=== PATIENT | male | born 1980 | race Caucasian/White ===

== ENCOUNTER 2018-10-06 10:58 | Emergency (ER) | payer SELFPAY ==
[~2018-10-06] VITALS: Ht 165.1 cm; Wt 77.0 kg
[2018-10-06 11:04] VITALS: BP 143/84; PULSE 90; RESP 16; Ht 165.1 cm; Wt 77.0 kg
[2018-10-06] MEDS ORDERED: SOD CHLORIDE 0.9% 1,000 ML IV STA (11:15)
[2018-10-06] MEDS ORDERED: morphine 2 MG INJ IV STA (11:15)
[2018-10-06] MEDS ORDERED: KETOROLAC 30 MG INJ IV STA (11:15)
[2018-10-06] MEDS ORDERED: ONDANSETRON 4 MG INJ IV STA ×2 (11:15→12:48)
[2018-10-06] MEDS ORDERED: HYDROmorphONE 0.5 MG/0.5 ML SYG IV STA (12:48)
[2018-10-06] MEDS ORDERED: CEFTRIAXONE 1 GM/50 ML (PMX) 50 ML IVPB ONE (13:00)
--- NOTE | 2018-10-06 13:07 | ERD ---
ER Documentation Chief Complaint Chief Complaint pt is bib self with c/o right sided flank pain on and off x 2 wk with nause HPI 37-year-old male is here complaining of right-sided flank pain on and off for 2 weeks with nausea. He states over the past 2 weeks she is thrown up one time and has had one episode of hematuria. He does have dysuria. No fever. No diarrhea. He is status post cholecystectomy. Denies testicular pain. ROS All systems reviewed and are negative except as per history of present illness. Allergies Allergies: Coded Allergies: No Known Allergy (Unverified , 10/06/18) PMhx/Soc History of Surgery: Yes (LAP CASS) FmHx Family History: No diabetes Physical Exam Vitals Vital Signs Date Temp Pulse Resp B/P (MAP) Pulse Ox O2 O2 Flow FiO2 Time Delivery Rate 10/06/18 98.3 90 16 143/84 97 11:04 (103) Physical Exam INITIAL VITAL SIGNS: Reviewed by me GENERAL: Awake, alert and oriented x 4, well appearing, nontoxic, speaking in full sentences. No acute distress RESPIRATORY: Clear to auscultation bilaterally. Symmetric chest wall rise. No wheezing or rales. No accessory muscle use. CV: Regular rate and rhythm. No murmurs, rubs, or gallops. ABDOMEN: Soft, non-distended. Nontender. Negative [place]. Negative McBurneys point tenderness. Mild right-sided CVA tenderness . No guarding. No rebound. Result Diagram: 10/06/18 1129 10/06/18 1129 Results 24 hrs Laboratory Tests Test 10/06/18 11:29 White Blood Count 9.3 10^3/ul Red Blood Count 5.71 10^6/ul Hemoglobin 16.4 g/dl Hematocrit 49.1 % Mean Corpuscular Volume 86.0 fl Mean Corpuscular Hemoglobin 28.7 pg Mean Corpuscular Hemoglobin Concent 33.4 g/dl Red Cell Distribution Width 12.7 % Platelet Count 264 10^3/UL Mean Platelet Volume 9.4 fl Immature Granulocytes % 0.300 % Neutrophils % 61.7 % Lymphocytes % 22.8 % Monocytes % 8.1 % Eosinophils % 6.5 % Basophils % 0.6 % Nucleated Red Blood Cells % 0.0 /100WBC Immature Granulocytes # 0.030 10^3/ul Neutrophils # 5.7 10^3/ul Lymphocytes # 2.1 10^3/ul Monocytes # 0.8 10^3/ul Eosinophils # 0.6 10^3/ul Basophils # 0.1 10^3/ul Nucleated Red Blood Cells # 0.0 10^3/ul Urine Color YELLOW Urine Clarity SLIGHTLY CLOUDY Urine pH 5.0 Urine Specific [place] 1.026 Urine Ketones NEGATIVE mg/dL Urine Nitrite NEGATIVE mg/dL Urine Bilirubin NEGATIVE mg/dL Urine Urobilinogen NEGATIVE mg/dL Urine Leukocyte Esterase 1+ [place]/ul Urine Microscopic RBC > 182 /HPF Urine Microscopic WBC 6 /HPF Urine Squamous Epithelial Cells FEW /HPF Urine Bacteria FEW /HPF Urine Mucus FEW /HPF Urine Hemoglobin 3+ mg/dL Urine Glucose NEGATIVE mg/dL Urine Total Protein NEGATIVE mg/dl Sodium Level 145 mmol/L Potassium Level 4.2 mmol/L Chloride Level 108 mmol/L Carbon Dioxide Level 25 mmol/L Anion Gap 12 Blood Urea Nitrogen 17 mg/dl Creatinine 1.10 mg/dl Est Glomerular Filtrat Rate mL/min > 60 mL/min Glucose Level 121 mg/dl Calcium Level 9.6 mg/dl Total Bilirubin 0.7 mg/dl Direct Bilirubin 0.00 mg/dl Indirect Bilirubin 0.7 mg/dl Aspartate Amino Transf (AST/SGOT) 43 IU/L Alanine Aminotransferase (ALT/SGPT) 48 IU/L Alkaline Phosphatase 54 IU/L Total Protein 8.4 g/dl Albumin 4.6 g/dl Globulin 3.80 g/dl Albumin/Globulin Ratio 1.21 Lipase 48 U/L Current Medications Medications Dose Sig/Nelida Start Time Status Last (Trade) Ordered Route PRN Stop Time Admin Dose Reason Admin Sodium 1,000 ml @ Q1H STAT 10/06/18 DC 10/06/18 Chloride 1,000 mls/hr IV 11:15 11:27 10/06/18 12:14 Morphine 2 mg ONCE STAT 10/06/18 DC 10/06/18 Sulfate IV 11:15 11:27 (morphine) 10/06/18 11:17 Ondansetron 4 mg ONCE STAT 10/06/18 DC 10/06/18 HCl (Zofran IV 11:15 11:27 Inj) 10/06/18 11:17 Ketorolac 30 mg ONCE STAT 10/06/18 DC 10/06/18 Tromethamine IV 11:15 11:27 (Toradol) 10/06/18 11:17 1 mg ONCE STAT 10/06/18 DC Hydromorphone IV 12:48 HCl 10/06/18 12:49 (Dilaudid) Ondansetron 4 mg ONCE STAT 10/06/18 DC HCl (Zofran IV 12:48 Inj) 10/06/18 12:49 Ceftriaxone 50 ml @ ONCE ONCE 10/06/18 Sodium 100 mls/hr IVPB 13:00 10/06/18 13:29 Procedures/MDM The differential diagnosis includes but is not limited to appendicitis, cholelithiasis, cholecystitis, pancreatitis, hepatitis, gastritis, peptic ulcer disease, bowel obstruction, diverticulitis, renal disease including stones, torsion, AAA, pyelonephritis, and others. Patient's labs are unremarkable. Urine does show evidence of UTI and hematuria. CT shows nonobstructing kidney stones. He was given a dose of Rocephin IV here as well as pain medication and discharged with Cipro Zofran and [place]. No evidence of septic stone. Patient counseled regarding my diagnostic impression and care plan. Prior to discharge all questions answered. Pt agrees with treatment plan and understands strict return precautions. Pt is instructed to follow up with primary care provider within 24-48 hours. Precautionary instructions provided including instructions to return to the ER if not improving or for any worsening or changing symptoms or concerns. Departure Diagnosis: Primary Impression: Cystitis Additional Impression: Renal colic Condition: Stable ABDIFATAH SCHERER PA-C Oct 06, 2018 13:07
[2018-10-06] MEDS ORDERED: HYDR-4011 PO (13:08)
[2018-10-06] MEDS ORDERED: ONDA4TAB14 PO (13:08)
[2018-10-06] MEDS ORDERED: CIPR500T4 PO (13:08)
== END 2018-10-06 14:16 | disposition home or self-care (01) ==
LOC: FTE 10:58
DX: N30.91 Cystitis, unspecified with hematuria (principal); N23 Unspecified renal colic
CPT/HCPCS: 36415; 74176; 80053; 81001; 83690; 85025; 96361; 96365; 96375; 96376; 99285; J0696; J1170; J1885; J2270; J2405; J7030

== ENCOUNTER 2018-10-09 10:17 | Emergency (ER) | payer SELFPAY ==
[~2018-10-09] VITALS: Ht 165.1 cm; Wt 84.6 kg
[~2018-10-09 10:17] MED LIST: CIPR500T4 PO; HYDR-4011 PO; ONDA4TAB14 PO
[2018-10-09 10:25] VITALS: Ht 165.1 cm; Wt 84.6 kg
[2018-10-09] MEDS ORDERED: HYDROmorphONE 1 MG/ML SYG IV STA ×3 (12:15→14:41)
[2018-10-09] MEDS ORDERED: KETOROLAC 30 MG INJ IV STA (12:15)
[2018-10-09] MEDS ORDERED: SOD CHLORIDE 0.9% 1,000 ML IV STA ×2 (12:15→14:41)
[2018-10-09] MEDS ORDERED: ONDANSETRON 4 MG INJ IV STA ×3 (12:15→14:41)
--- NOTE | 2018-10-09 14:47 | ERD ---
ER Documentation Chief Complaint Chief Complaint RIGHT FLANK PAIN, SEEN TUESDAY, DX KIDNEY STONE HPI This is a 37-year-old male who was recently diagnosed with a kidney stone. The patient indicates that 2 weeks ago he started to develop right flank pain. He was seen and evaluated at [facility] 2 days ago with nep hrolithiasis via CT scan. The patient indicates he was sent home with [place] but roughly 1 hour prior to arrival he started to develop severe pain radiating to the right flank region to the right lower quadrant. He had no fevers no shaking no chills and also is taking antibiotics that were prophylactically prescribed to the patient. He had mild hematuria. He states the pain is a sharp shooting pain 10 out of 10 intensity with no alleviating or exacerbating factors. ROS All systems reviewed and are negative except as per history of present illness. Medications Home Meds Active Scripts Tamsulosin Hcl* (Flomax*) 0.4 Mg Cap.er.24h, 0.4 MG PO BID, #10 CAP Prov:AC BURK MD 10/09/18 Ibuprofen* (Motrin*) 800 Mg Tab, 800 MG PO Q6H PRN for PAIN AND OR ELEVATED TEMP, #30 TAB Prov:AC BURK MD 10/09/18 Hydrocodone/Acetaminophen ([place] 5-325 Tablet) 1 Each Tablet, 1 TAB PO Q6H PRN for PAIN, #15 TAB Prov:ABDIFATAH SCHERER PA-C 10/06/18 Discontinued Scripts Ondansetron (Ondansetron Odt) 4 Mg Tab.rapdis, 4 MG PO Q6H PRN for NAUSEA AND/OR VOMITING, #20 TAB Prov:ABDIFATAH SCHERER PA-C 10/06/18 Ciprofloxacin Hcl* (Ciprofloxacin Hcl*) 500 Mg Tablet, 500 MG PO BID for 7 Days, TAB Prov:ABDIFATAH SCHERER PA-C 10/06/18 Allergies Allergies: Coded Allergies: No Known Allergy (Unverified , 10/09/18) PMhx/Soc History of Surgery: Yes (LAP CASS, LEFT HAND SX) Anesthesia Reaction: No Hx Neurological Disorder: No Hx Respiratory Disorders: No Hx Cardiac Disorders: No Hx Psychiatric Problems: No Hx Miscellaneous Medical Probl: No Hx Alcohol Use: No Hx Substance Use: No Hx Tobacco Use: No Smoking Status: Never smoker Physical Exam Vitals Vital Signs Date Temp Pulse Resp B/P (MAP) Pulse Ox O2 O2 Flow FiO2 Time Delivery Rate 10/09/18 68 18 103/69 98 Room Air 14:16 (80) 10/09/18 98.6 93 17 136/85 97 10:25 (102) Physical Exam Constitutional:Well-developed. Well-nourished. Patient appeared to be in a significant amount discomfort secondary to pain HEENT:Normocephalic. Atraumatic.Pupils were equal round reactive to light. Moist mucous membranes.No tonsillar exudates. Neck: No nuchal rigidity. No lymphadenopathy. No posterior cervical spine tenderness or step-offs. Respiratory: Not using accessory muscles of respiration.Lungs were clear to auscultation bilaterally. No rhonchi. No rales. No wheezing. Cardiovascular: Regular rate regular rhythm.No murmurs. No rubs were apprec iated.S1, S2 normal. Distal pulses are palpable 2+ bilaterally. GI: Abdomen was soft. Nontender. Right CVA tenderness and tenderness of right lower quadrant. No tenderness specifically over McBurney's point. Psoas sign negative. Obturator sign negative.. No pulsatile abdominal masses or bruits. No rebound. No guarding. Bowel sounds were present and normal. Muscle skeletal: Full range of motion of both the upper and lower extremities bilaterally.Normal muscle tone.No assymetrical calf tenderness or swelling. Skin: No petechia, no purpura. No lesions on the palms or the soles of the feet. No maculopapular rash. NEURO: Patient was alert, awake, orientated x3.No facial droop. Gait observed and normal with no ataxia.Speech had regular rate and rhythm. No focal neurological deficits. Result Diagram: 10/09/18 1246 10/09/18 1246 Results 24 hrs Laboratory Tests Test 10/09/18 12:45 10/09/18 12:46 Prothrombin Time 12.9 Sec Prothrombin Time Ratio 1.0 INR International Normalized Ratio 0.96 Activated Partial Thromboplast Time 24.4 Sec White Blood Count 9.2 10^3/ul Red Blood Count 5.68 10^6/ul Hemoglobin 16.5 g/dl Hematocrit 48.9 % Mean Corpuscular Volume 86.1 fl Mean Corpuscular Hemoglobin 29.0 pg Mean Corpuscular Hemoglobin Concent 33.7 g/dl Red Cell Distribution Width 12.6 % Platelet Count 255 10^3/UL Mean Platelet Volume 9.4 fl Immature Granulocytes % 0.400 % Neutrophils % 66.4 % Lymphocytes % 20.3 % Monocytes % 8.0 % Eosinophils % 4.4 % Basophils % 0.5 % Nucleated Red Blood Cells % 0.0 /100WBC Immature Granulocytes # 0.040 10^3/ul Neutrophils # 6.1 10^3/ul Lymphocytes # 1.9 10^3/ul Monocytes # 0.7 10^3/ul Eosinophils # 0.4 10^3/ul Basophils # 0.1 10^3/ul Nucleated Red Blood Cells # 0.0 10^3/ul Sodium Level 140 mmol/L Potassium Level 4.4 mmol/L Chloride Level 103 mmol/L Carbon Dioxide Level 28 mmol/L Anion Gap 9 Blood Urea Nitrogen 13 mg/dl Creatinine 1.07 mg/dl Est Glomerular Filtrat Rate mL/min > 60 mL/min Glucose Level 89 mg/dl Calcium Level 9.4 mg/dl Total Bilirubin 0.9 mg/dl Direct Bilirubin 0.00 mg/dl Indirect Bilirubin 0.9 mg/dl Aspartate Amino Transf (AST/SGOT) 111 IU/L Alanine Aminotransferase (ALT/SGPT) 289 IU/L Alkaline Phosphatase 61 IU/L Total Protein 8.4 g/dl Albumin 4.4 g/dl Globulin 4.00 g/dl Albumin/Globulin Ratio 1.10 Amylase Level 79 U/L Lipase 36 U/L Current Medications Medications Dose Sig/Nelida Start Time Status Last (Trade) Ordered Route PRN Stop Time Admin Dose Reason Admin Sodium 1,000 ml @ Q1H STAT 10/09/18 DC 10/09/18 Chloride 1,000 mls/hr IV 12:15 12:43 10/09/18 13:14 1 mg ONCE STAT 10/09/18 DC 10/09/18 Hydromorphone IV 12:15 12:44 HCl 10/09/18 12:17 (Dilaudid) Ondansetron 4 mg ONCE STAT 10/09/18 DC 10/09/18 HCl (Zofran IV 12:15 12:44 Inj) 10/09/18 12:17 Ketorolac 30 mg ONCE STAT 10/09/18 DC 10/09/18 Tromethamine IV 12:15 12:44 (Toradol) 10/09/18 12:17 1 mg ONCE STAT 10/09/18 DC 10/09/18 Hydromorphone IV 13:26 13:42 HCl 10/09/18 13:27 (Dilaudid) Ondansetron 4 mg ONCE STAT 10/09/18 DC 10/09/18 HCl (Zofran IV 13:26 13:41 Inj) 10/09/18 13:27 Sodium 1,000 ml @ Q1H STAT 10/09/18 UNV Chloride 1,000 mls/hr IV 14:41 10/09/18 15:40 1 mg ONCE STAT 10/09/18 UNV Hydromorphone IV 14:41 HCl 10/09/18 14:42 (Dilaudid) Ondansetron 4 mg ONCE STAT 10/09/18 UNV HCl (Zofran IV 14:41 Inj) 10/09/18 14:42 Tamsulosin 0.4 mg ONCE ONCE 10/09/18 UNV HCl PO 15:00 (Flomax) 10/09/18 15:01 Procedures/MDM This is a 37-year-old male that presented to the emergency department with severe abdominal pain. He had a recent diagnosis of nephrolithiasis. I did feel his symptoms resolved of his nephrolithiasis. My clinical suspicion was low for appendicitis. The patient had repeat ancillary laboratory work that showed no leukocytosis. Renal function was normal. Patient had mild transaminitis. I repeated an ultrasound of the kidneys that showed mild right hydronephrosis. The patient received analgesic medication And IV fluids. The patient's pain improved. I did feel he could be safely discharged home. The patient was discharged home in fair condition. They were instructed to return to the emergency department at any time if there was any worsening of their condition. The patient stated they would follow up with their PCP in the next 24-48 hours to initiate a suitable medication regimen under the care of their PCP as well as to allow their PCP to monitor any drug reactions. The patient was discharged home with prescriptions after they gave informed consent to the new medication. They were also fully informed by myself on the adverse effects and adverse drug interactions in order to provide adequate safeguards to prevent possible adverse reactions to medications. Departure Diagnosis: Primary Impression: Nephrolithiasis Condition: Fair AC BURK MD Oct 09, 2018 14:47
[2018-10-09] MEDS ORDERED: IBUP800T48 PO (14:49)
[2018-10-09] MEDS ORDERED: TAMS-14 PO (14:49)
[2018-10-09] MEDS ORDERED: TAMSULOSIN (SR) 0.4 MG CAP PO ONE (15:00)
[2018-10-09 16:50] VITALS: BP 121/72; PULSE 70; RESP 16
== END 2018-10-09 16:51 | disposition home or self-care (01) ==
LOC: E/R 10:17
DX: N20.0 Calculus of kidney (principal)
CPT/HCPCS: 36415; 76775; 80053; 82150; 83690; 85025; 85610; 85730; 96361; 96374; 96375; 96376; 99285; J1170; J1885; J2405; J7030

== ENCOUNTER 2018-10-13 12:09 | Emergency (ER) | payer SELFPAY ==
[~2018-10-13] VITALS: Wt 86.0 kg
[~2018-10-13 12:09] MED LIST changes: -CIPR500T4 PO; +IBUP800T48 PO; -ONDA4TAB14 PO; +TAMS-14 PO
[2018-10-13 12:15] VITALS: BP 132/83; PULSE 77; RESP 18
--- NOTE | 2018-10-13 13:05 | EN ---
Date/Time of Note Date/Time of Note DATE: 10/13/18 TIME: 13:02 ER Progress Note 37-year-old male, with history of nonobstructive urolithiasis, seen here in the emergency department on 10/06, 10/09 and today for similar symptoms. The patient has had CT of the abdomen and ultrasound that showed punctuated calculi, nonobstructive. Patient is stable, vital signs stable. He is requesting pain medication. Patient evaluated by me, barbara to be seen in ED 2. Patient: VICTORINO MEDELLIN : 1980 Age: 37 Sex: M MR #: [id number] DOS: 10/09/18 0000 Ordering MD: AC BURK MD Location: E/R Room/Bed: PROCEDURE: Retroperitoneal US. CLINICAL INDICATION: Flank pain TECHNIQUE: Multiple sonographic images of the kidneys and retroperitoneum were obtained. The images were reviewed on a PACS workstation. COMPARISON: 10/06/2018 FINDINGS: The kidneys are normal in size, contour, cortical thickness and cortical echogenicity. The right kidney measures 11.1 cm. The left kidney measures 11.9 cm. There are echogenic foci in the right kidney, measuring up to 8 mm. There is mild right-sided hydronephrosis. There are scattered tiny nonobstructing stones in the left kidney. The urinary bladder is normal. RPTAT: AA IMPRESSION: Bilateral nephrolithiasis. Mild right-sided hydronephrosis. Patient: VICTORINO MEDELLIN : 1980 Age: 37 Sex: M MR #: [id number] DOS: 10/06/18 1115 Ordering MD: ABDIFATAH SCHERER PA-C Location: [facility]TE Room/Bed: PROCEDURE: CT Abdomen and Pelvis without contrast. CLINICAL INDICATION: Abdominal and pelvic pain. TECHNIQUE: CT scan of the abdomen and pelvis without contrast was performed. Coronal and sagittal reformatted images were obtained from the axial source images. Images were reviewed on a high-resolution PACS workstation. Total exam DLP is 891 mGy-cm. CTDIvol is 14 mGy. One or more of the following dose reduction techniques were used: Automated exposure control, adjustment of the mA and/or kV according to patient size, use of iterative reconstruction technique. DICOM images are available. COMPARISON: None. FINDINGS: There is bilateral lung base atelectasis versus scarring. There is no pleural effusion. The liver is normal in size and attenuation. There is no focal hepatic lesion. Status post cholecystectomy. The spleen is normal in size. There is no focal splenic lesion. Both adrenals are normal with no enlargement or mass. The pancreas is unremarkable with no mass or evidence of pancreatitis. There is no renal mass or hydronephrosis. There are multiple nonobstructing punctate calcifications throughout the bilateral kidneys. The abdominal aorta is not dilated. There is no retroperitoneal lymphadenopathy or mass. There is no pelvic lymphadenopathy or mass. The bladder and distal ureters are normal. The periappendiceal region is unremarkable with no evidence of appendicitis. There is mild sigmoid diverticulosis. There is no free fluid or free gas. There are mild degenerative changes of the spine. There is a patulous fat containing left inguinal ring. IMPRESSION: 1. Multiple punctate nonobstructing bilateral nephrolithiasis. 2. Status post cholecystectomy. 3. Mild sigmoid diverticulosis. 4. There is a patulous fat containing left inguinal ring. TIANNA BENTON MD Oct 13, 2018 13:05
== END 2018-10-13 13:48 | disposition left against medical advice (07) ==
LOC: E/R 12:09
DX: Z53.21 Procedure and treatment not carried out due to patient leaving prior to being seen by health care provider (principal)